=== PATIENT | male | born 1950 | race Caucasian/White ===

== ENCOUNTER 2016-07-09 11:50 | Emergency (ER) | payer OTHER ==
[2016-07-09 14:09] VITALS: BP 188/107
--- NOTE | 2016-07-09 15:01 | EDM.PDOC ---
ED HPI GENERAL MEDICAL PROBLEM - General Chief Complaint: General Stated Complaint: SWEELING IN FEET AND LEGS Time Seen by Provider: 07/09/16 15:00 Source of Information: Reports: Patient, Family History Limitations: Reports: No limitations - History of Present Illness INITIAL COMMENTS - FREE TEXT/NARRATIVE: PT ARRIVED CONCERNED ABOUT THE LEG SWELLING. hE IS FEELING THAT HIS LEGS ARE VERY UNCOMFORTABLE. Onset: gradual Duration: Day(s): Location: Reports: lower extremity, left, lower extremity, right Associated Symptoms: Reports: denies other symptoms - Related Data Allergies Allergy/AdvReac Type Severity Reaction Status Date / Time codeine Allergy Severe Respiratory Verified 07/09/16 13:32 Depression Penicillins Allergy Severe Hives Verified 07/09/16 13:31 gabapentin [From Neurontin] Allergy Unknown Anxiety Verified 07/09/16 13:32 Home Meds: Home Meds Labetalol [Normodyne] 300 mg PO BID 07/09/16 [History] Losartan [Cozaar] 100 mg PO DAILY 07/09/16 [History] [place]-3 Fatty Acids [Fish Oil] 300 mg PO BEDTIME 07/09/16 [History] Sesame Seed Extract [Sesame Seed] 10 mg PO BID 07/09/16 [History] Spironolactone [Aldactone] 25 mg PO DAILY 07/09/16 [History] amLODIPine [Norvasc] 10 mg PO DAILY 07/09/16 [History] Past Medical History HEENT History: Reports: Impaired vision Cardiovascular History: Reports: Heart murmur, High cholesterol, Hypertension Respiratory History: Reports: Asthma, COPD, Sleep apnea Genitourinary History: Reports: Other (see below) Other Genitourinary History: borderline diabetic Musculoskeletal History: Reports: Back pain, chronic, Osteoarthritis Neurological History: Reports: Head trauma Dermatologic History: Reports: Other (see below) Other Dermatologic History: 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 scratches with open areas from time to time - Infectious Disease History Infectious Disease History: Reports: Hepatitis C - Past Surgical History HEENT Surgical History: Reports: Other (see below) Other HEENT Surgeries/Procedures: reconstructed nose surgery from deviated septum, 1999 approx. GI Surgical History: Reports: Hernia, abdominal Social & Family History - Tobacco Use Smoking Status *Q: Current Every Day Smoker Years of Tobacco use: 45 Packs/Tins Daily: 1 Second Hand Smoke Exposure: Yes - Caffeine Use Caffeine Use: Reports: Coffee Other Caffeine Use: 2 to 4 cups per day - Recreational Drug Use Recreational Drug Use: No ED ROS GENERAL - Review of Systems Review Of Systems: See Below Constitutional: Reports: no symptoms HEENT: Reports: No symptoms Respiratory: Reports: No Symptoms Cardiovascular: Reports: No symptoms Endocrine: Reports: no symptoms GI/Abdominal: Reports: No symptoms : Reports: no symptoms Musculoskeletal: Reports: other ( SWELLING IN HIS LOWER EXTREMITIES. ) Skin: Reports: no symptoms ED EXAM, GENERAL - Physical Exam Exam: See Below Free Text/Narrative:: pT APPEARS TO BE VERY AGITATED. hE HAS SWELLING IN HIS LEGS AND THEY ARE TENDER. Exam Limited By: No limitations General Appearance: alert, anxious Ears: normal TMs Nose: normal inspection Throat/Mouth: Normal inspection Head: atraumatic Neck: normal inspection Respiratory/Chest: no respiratory distress Cardiovascular: regular rate, rhythm GI/Abdominal: other ( ABDOMAN IS MILDLY DISTENDED. ) (Male) Exam: Deferred Rectal (Males) Exam: Deferred Back Exam: normal inspection Neurological: alert, oriented Psychiatric: normal affect Course - Vital Signs Last Recorded V/S: Last Vital Signs Temp 36.4 C 07/09/16 13:45 Pulse 71 07/09/16 13:45 Resp 20 07/09/16 13:45 BP 188/107 H 07/09/16 13:45 Pulse Ox 94 L 07/09/16 13:45 - Orders/Labs/Meds Orders: Active Orders 24 hr Category Date Time Status Abdomen Pelvis w Cont [CT] Stat Exams 07/09/16 15:54 Taken VL Duplex Lwr Ext Veins Comp [US] Stat Exams 07/09/16 14:59 Taken Iopamidol [Isovue-300 (61%)] Med 07/09/16 16:15 Active 150 ml IV . DIRECTED Sodium Chloride 0.9% [Normal Saline] 1,000 ml Med 07/09/16 16:00 Active IV ASDIRECTED Sodium Chloride 0.9% [Saline Flush] Med 07/09/16 16:02 Active 10 ml FLUSH ONETIME PRN Medication Orders Sodium Chloride (Normal Saline) 1,000 mls @ 100 mls/hr IV ASDIRECTED BO Last Admin: 07/09/16 16:30 Dose: 100 mls/hr Iopamidol (Isovue-300 (61%)) 150 ml IV . DIRECTED BO Last Admin: 07/09/16 16:17 Dose: 150 ml Sodium Chloride (Saline Flush) 10 ml FLUSH ONETIME PRN PRN Reason: PER RADIOLOGY PROTOCOL Last Admin: 07/09/16 16:17 Dose: 10 ml Labs: Laboratory Tests 07/09/16 07/09/16 07/09/16 Range/Units 15:07 15:07 15:07 WBC 10.9 (4.5-11.0) K/uL RBC 5.21 (4.30-5.90) M/uL Hgb 15.6 H (12.0-15.0) g/dL Hct 45.7 (40.0-54.0) % MCV 88 (80-98) fL MCH 30 (27-31) pg MCHC 34 (32-36) % Plt Count 187 (150-400) K/uL Neut % (Auto) 62 (36-66) % Lymph % (Auto) 24 (24-44) % [place] % (Auto) 9 H (2-6) % Eos % (Auto) 5 H (2-4) % Baso % (Auto) 1 (0-1) % Sodium 143 (140-148) mmol/L Potassium 3.8 (3.6-5.2) mmol/L Chloride 105 (100-108) mmol/L Carbon Dioxide 27 (21-32) mmol/L Anion Gap 10.8 (5.0-14.0) mmol/L BUN 12 (7-18) mg/dL Creatinine 1.1 (0.8-1.3) mg/dL Est Cr Clr Drug Dosing 56.69 mL/min Estimated GFR (MDRD) > 60 (>60) Glucose 115 H (74-106) mg/dL Calcium 8.8 (8.5-10.1) mg/dL Total Bilirubin 0.4 (0.2-1.0) mg/dL AST 17 (15-37) U/L ALT 29 (12-78) U/L Alkaline Phosphatase 26 L (46-116) U/L [id number] Pept (5-125) pg/mL Total Protein 7.2 (6.4-8.2) g/dL Albumin 4.1 (3.4-5.0) g/dL Globulin 3.1 (2.3-3.5) g/dL Albumin/Globulin Ratio 1.3 (1.2-2.2) Lipase 221 (73-393) U/L Urine Color Urine Appearance Urine pH (4.5-8.0) Ur Specific [place] (1.008-1.030) Urine Protein (NEGATIVE) mg/dL Urine Glucose (UA) (NEGATIVE) mg/dL Urine Ketones (NEGATIVE) mg/dL Urine Occult Blood (NEGATIVE) Urine Nitrite (NEGAITVE) Urine Bilirubin (NEGATIVE) Urine Urobilinogen (NORMAL) mg/dL Ur Leukocyte Esterase (NEGATIVE) Urine RBC (0-5) Urine WBC (0-5) Ur Epithelial Cells Amorphous Sediment Urine Bacteria Urine Mucus 07/09/16 07/09/16 Range/Units 15:28 15:43 WBC (4.5-11.0) K/uL RBC (4.30-5.90) M/uL Hgb (12.0-15.0) g/dL Hct (40.0-54.0) % MCV (80-98) fL MCH (27-31) pg MCHC (32-36) % Plt Count (150-400) K/uL Neut % (Auto) (36-66) % Lymph % (Auto) (24-44) % [place] % (Auto) (2-6) % Eos % (Auto) (2-4) % Baso % (Auto) (0-1) % Sodium (140-148) mmol/L Potassium (3.6-5.2) mmol/L Chloride (100-108) mmol/L Carbon Dioxide (21-32) mmol/L Anion Gap (5.0-14.0) mmol/L BUN (7-18) mg/dL Creatinine (0.8-1.3) mg/dL Est Cr Clr Drug Dosing mL/min Estimated GFR (MDRD) (>60) Glucose (74-106) mg/dL Calcium (8.5-10.1) mg/dL Total Bilirubin (0.2-1.0) mg/dL AST (15-37) U/L ALT (12-78) U/L Alkaline Phosphatase (46-116) U/L [id number] Pept 78 (5-125) pg/mL Total Protein (6.4-8.2) g/dL Albumin (3.4-5.0) g/dL Globulin (2.3-3.5) g/dL Albumin/Globulin Ratio (1.2-2.2) Lipase (73-393) U/L Urine Color Yellow Urine Appearance Clear Urine pH 7.0 (4.5-8.0) Ur Specific [place] 1.005 L (1.008-1.030) Urine Protein Negative (NEGATIVE) mg/dL Urine Glucose (UA) Normal (NEGATIVE) mg/dL Urine Ketones Negative (NEGATIVE) mg/dL Urine Occult Blood Negative (NEGATIVE) Urine Nitrite Negative (NEGAITVE) Urine Bilirubin Negative (NEGATIVE) Urine Urobilinogen Normal (NORMAL) mg/dL Ur Leukocyte Esterase Negative (NEGATIVE) Urine RBC 0-5 (0-5) Urine WBC 0-5 (0-5) Ur Epithelial Cells Rare Amorphous Sediment Not seen Urine Bacteria Not seen Urine Mucus Not seen Meds: Medications Generic Name Dose Route Start Last Admin Trade Name Freq PRN Reason Stop Dose Admin Sodium Chloride 1,000 mls @ 100 mls/hr 07/09/16 16:00 07/09/16 16:30 Normal Saline IV 100 mls/hr ASDIRECTED BO Administration Iopamidol 150 ml 07/09/16 16:15 07/09/16 16:17 Isovue-300 (61%) IV 150 ml . DIRECTED BO Administration Sodium Chloride 10 ml 07/09/16 16:02 07/09/16 16:17 Saline Flush FLUSH 10 ml ONETIME PRN Administration PER RADIOLOGY PROTOCOL Discontinued Medications Generic Name Dose Route Start Last Admin Trade Name Freq PRN Reason Stop Dose Admin Furosemide 60 mg 07/09/16 15:56 07/09/16 16:28 Lasix IVPUSH 07/09/16 15:57 60 mg ONETIME ONE Administration Hydromorphone HCl 0.5 mg 07/09/16 17:38 07/09/16 17:53 Dilaudid IVPUSH 07/09/16 17:39 0.5 mg ONETIME ONE Administration Sodium Chloride 84 mls @ 3 mls/sec 07/09/16 16:02 07/09/16 16:16 Normal Saline IV 07/09/16 16:03 3 mls/sec ONETIME ONE Administration Departure - Departure Time of Disposition: 18:01 Disposition: Home, Self-Care 01 Condition: fair Clinical Impression: Pedal edema, Back pain, Distended abdomen Referrals: Андрей Cruz MD [Primary Care Provider] - Forms: ED Department Discharge Care Plan Goals: LOW SALT DIET, ELEVATE LEGS WHEN SITTING, USE THE SUPPORT HOSE, lASIX 40 MG DAILY FOR 2 WEEKS, HIGH FIBER AND HIGH K DIET, USE PRUNES 3-4 DAILY GUMMY FIBERS 2-3 DAILY, [facility] FOLLOW UP, A COPY OF THE CAT DSCAN, AND LAB WORK TO GO WITH THE PT. NORCO5/325 1 TAB Q 6H PRN FOR PAIN # 6 - My Orders Last 24 Hours: My Active Orders 07/09/16 14:59 VL Duplex Lwr Ext Veins Comp [US] Stat 07/09/16 15:54 Abdomen Pelvis w Cont [CT] Stat 07/09/16 16:00 Sodium Chloride 0.9% [Normal Saline] 1,000 ml IV ASDIRECTED 07/09/16 16:02 Sodium Chloride 0.9% [Saline Flush] 10 ml FLUSH ONETIME PRN 07/09/16 16:15 Iopamidol [Isovue-300 (61%)] 150 ml IV . DIRECTED - Assessment/Plan Last 24 Hours: My Active Orders 07/09/16 14:59 VL Duplex Lwr Ext Veins Comp [US] Stat 07/09/16 15:54 Abdomen Pelvis w Cont [CT] Stat 07/09/16 16:00 Sodium Chloride 0.9% [Normal Saline] 1,000 ml IV ASDIRECTED 07/09/16 16:02 Sodium Chloride 0.9% [Saline Flush] 10 ml FLUSH ONETIME PRN 07/09/16 16:15 Iopamidol [Isovue-300 (61%)] 150 ml IV . DIRECTED
--- NOTE | 2016-07-09 15:24 | CR ---
Chest 1V Frontal INDICATION: SOB FINDINGS: Metallic densities projected over the left chest. Old left rib fractures. Pleural thickeni ng left costophrenic angle. Old right rib fracture. Chest otherwise negative.
[2016-07-09] MEDS ORDERED: Furosemide 40 MG/4 ML VIAL IVPUSH ONE (15:56)
[2016-07-09] MEDS ORDERED: Sodium Chloride 0.9% 1,000 ML IV SCH (16:00)
[2016-07-09] MEDS ORDERED: Sodium Chloride 0.9% 10 ML Syringe FLUSH PRN (16:02)
[2016-07-09] MEDS ORDERED: Iopamidol 612 MG/ML 150 ML Bottle IV SCH (16:15)
[2016-07-09] MEDS ORDERED: HYDROmorphone 0.5 MG/0.5 ML Syringe IVPUSH ONE (17:38)
--- NOTE | 2016-07-10 09:32 | US ---
VL Duplex Lwr Ext Veins Comp INDICATION: SWELLING IN BOTH LEGS. FINDINGS: Ultrasound examination of bilateral lower extremities using Doppler and compressive techni que demonstrates that the common femoral, femoral, and popliteal veins are patent, and negative for thrombus. The calf veins were segmentally visualized and are negative where seen. IMPRESSION: Bilateral lower extremities negative for deep venous thrombosis.
== END 2016-07-09 18:32 | disposition home or self-care (01) ==
LOC: JP.ED 11:50
DX: R60.0 Localized edema (principal); M54.9 Dorsalgia, unspecified; R14.0 Abdominal distension (gaseous); I10 Essential (primary) hypertension; E78.00 Pure hypercholesterolemia, unspecified; J45.909 Unspecified asthma, uncomplicated; J44.9 Chronic obstructive pulmonary disease, unspecified; F17.210 Nicotine dependence, cigarettes, uncomplicated; Z98.890 Other specified postprocedural states; Z79.899 Other long term (current) drug therapy; Z88.0 Allergy status to penicillin; Z88.5 Allergy status to narcotic agent; Z88.8 Allergy status to other drugs, medicaments and biological substances
CPT/HCPCS: 36415; 71010; 74177; 80053; 81001; 83690; 83880; 85025; 93970; 96361; 96374; 96375; 99284; J1170; J1940; J7030; J7040; J7050

== ENCOUNTER 2016-08-04 07:53 | Emergency (ER) | payer OTHER ==
[2016-08-04 08:07] VITALS: BP 179/90
[2016-08-04] MEDS ORDERED: HYDROmorphone 1 MG/ML Syringe IVPUSH ONE (08:44)
[2016-08-04] MEDS ORDERED: Sodium Chloride 0.9% 10 ML Syringe FLUSH PRN ×2 (08:44→09:17)
--- NOTE | 2016-08-04 08:52 | EDM.PDOC ---
ED UPPER BACK/NECK PAIN/INJURY - General Chief Complaint: Back Pain or Injury Stated Complaint: BACK PAIN/FELL Time Seen by Provider: 08/04/16 08:22 Source: Reports: Patient, Family, RN notes reviewed History Limitations: Reports: No limitations - History of Present Illness INITIAL COMMENTS - FREE TEXT/NARRATIVE: 66-year-old gentleman presents emergency department day complaint of mid back pain, he states this occurred earlier today when he fell off a stepladder estimates 2 feet off the ground while he was cutting a branch landed in a pile of brush he is experiencing mid thoracic pain on the right side he denies any loss of consciousness or hitting his head he denies any other injuries, patient refused getting a gown - Related Data Allergies/ADRs: Allergies Allergy/AdvReac Type Severity Reaction Status Date / Time codeine Allergy Severe Respiratory Verified 07/09/16 13:32 Depression Penicillins Allergy Severe Hives Verified 08/04/16 08:13 gabapentin [From Neurontin] Allergy Unknown Anxiety Verified 07/09/16 13:32 Home Meds: Home Meds Labetalol [Normodyne] 300 mg PO BID 07/09/16 [History] Losartan [Cozaar] 100 mg PO DAILY 07/09/16 [History] [place]-3 Fatty Acids [Fish Oil] 300 mg PO BEDTIME 07/09/16 [History] Sesame Seed Extract [Sesame Seed] 10 mg PO BID 07/09/16 [History] Spironolactone [Aldactone] 25 mg PO DAILY 07/09/16 [History] amLODIPine [Norvasc] 10 mg PO DAILY 07/09/16 [History] Aspirin [Halfprin] 81 mg PO DAILY 08/04/16 [History] Furosemide [Lasix] 20 mg PO DAILY 08/04/16 [History] rOPINIRole [Requip] 0.5 mg PO TID 08/04/16 [History] Past Medical History HEENT History: Reports: Impaired vision Cardiovascular History: Reports: Heart murmur, High cholesterol, Hypertension Respiratory History: Reports: Asthma, COPD, Sleep apnea Genitourinary History: Reports: Other (see below) Other Genitourinary History: borderline diabetic Musculoskeletal History: Reports: Back pain, chronic, Osteoarthritis Neurological History: Reports: Head trauma Endocrine/Metabolic History: Reports: Other (see below) Other Endocrine/Metabolic History: boarder line diabetes Dermatologic History: Reports: Other (see below) Other Dermatologic History: 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 scratches with open areas from time to time - Infectious Disease History Infectious Disease History: Reports: Hepatitis C - Past Surgical History HEENT Surgical History: Reports: Other (see below) Other HEENT Surgeries/Procedures: reconstructed nose surgery from deviated septum, 1999 approx. GI Surgical History: Reports: Hernia, abdominal Social & Family History - Tobacco Use Smoking Status *Q: Current Every Day Smoker Years of Tobacco use: 45 Packs/Tins Daily: 1 Second Hand Smoke Exposure: Yes - Caffeine Use Caffeine Use: Reports: Coffee Other Caffeine Use: 2 to 4 cups per day - Recreational Drug Use Recreational Drug Use: No ED ROS GENERAL - Review of Systems Review Of Systems: See Below Constitutional: Reports: no symptoms HEENT: Reports: No symptoms Respiratory: Reports: Shortness of Breath (With a deep breath) Cardiovascular: Reports: Chest pain (Predominantly back right side) GI/Abdominal: Reports: No symptoms : Reports: no symptoms Musculoskeletal: Reports: no symptoms Skin: Reports: no symptoms Neurological: Reports: Other (Cannot lift his arms above his head secondary to pain) ED EXAM, UPPER BACK/NECK PAIN - Physical Exam Exam: See Below Exam Limited By: No limitations General Appearance: alert, mild distress Head Exam: atraumatic, normocephalic Neck Exam: non-tender, full range of motion, normal alignment, normal inspection Nexus Criteria: painful distracting injuries. No: posterior, midline cervical tenderness, evidence of intoxication, altered level of consciousness, focal neurological deficit Cardiovascular/Respiratory: regular rate, rhythm, no M/R/G GI/Abdominal: soft, non tender Back Exam: normal inspection, decreased range of motion, paraspinal tenderness ( T6 to 8 region right side). No: full range of motion, CVA tenderness (R), CVA tenderness (L), muscle spasm, vertebral tenderness Neurologic: No: abnormal gait Course - Vital Signs Last Recorded V/S: Last Vital Signs Temp 98.0 F 08/04/16 08:20 Pulse 73 08/04/16 08:20 Resp 16 08/04/16 08:20 BP 179/90 H 08/04/16 08:20 Pulse Ox 95 08/04/16 08:20 - Orders/Labs/Meds Orders: Active Orders 24 hr Category Date Time Status Peripheral IV Care [RC] . DIRECTED Care 08/04/16 08:44 Active Chest w Cont [CT] Stat Exams 08/04/16 09:13 Taken Sodium Chloride 0.9% [Normal Saline] 1,000 ml Med 08/04/16 09:15 Active IV ASDIRECTED Sodium Chloride 0.9% [Saline Flush] Med 08/04/16 08:44 Active 10 ml FLUSH ASDIRECTED PRN Peripheral IV Insertion Adult [OM.PC] Urgent Oth 08/04/16 08:44 Ordered Medication Orders Sodium Chloride (Normal Saline) 1,000 mls @ 500 mls/hr IV ASDIRECTED BO Sodium Chloride (Saline Flush) 10 ml FLUSH ASDIRECTED PRN PRN Reason: Keep Vein Open Last Admin: 08/04/16 08:56 Dose: 10 ml Labs: Laboratory Tests 08/04/16 08/04/16 Range/Units 09:28 09:28 WBC 13.8 H (4.5-11.0) K/uL RBC 5.11 (4.30-5.90) M/uL Hgb 15.5 H (12.0-15.0) g/dL Hct 45.1 (40.0-54.0) % MCV 88 (80-98) fL MCH 30 (27-31) pg MCHC 34 (32-36) % Plt Count 199 (150-400) K/uL Neut % (Auto) 68 H (36-66) % Lymph % (Auto) 19 L (24-44) % [place] % (Auto) 10 H (2-6) % Eos % (Auto) 3 (2-4) % Baso % (Auto) 1 (0-1) % Sodium 143 (140-148) mmol/L Potassium 4.5 (3.6-5.2) mmol/L Chloride 106 (100-108) mmol/L Carbon Dioxide 27 (21-32) mmol/L Anion Gap 10.4 (5.0-14.0) mmol/L BUN 18 (7-18) mg/dL Creatinine 1.1 (0.8-1.3) mg/dL Est Cr Clr Drug Dosing 56.69 mL/min Estimated GFR (MDRD) > 60 (>60) Glucose 136 H (74-106) mg/dL Calcium 8.9 (8.5-10.1) mg/dL Meds: Medications Generic Name Dose Route Start Last Admin Trade Name Meaghan PRN Reason Stop Dose Admin Sodium Chloride 1,000 mls @ 500 mls/hr 08/04/16 09:15 Normal Saline IV ASDIRECTED BO Sodium Chloride 10 ml 08/04/16 08:44 08/04/16 08:56 Saline Flush FLUSH 10 ml ASDIRECTED PRN Administration Keep Vein Open Discontinued Medications Generic Name Dose Route Start Last Admin Trade Name Meaghan PRN Reason Stop Dose Admin Hydromorphone HCl 1 mg 08/04/16 08:44 08/04/16 08:56 Dilaudid IVPUSH 08/04/16 08:45 1 mg ONETIME ONE Administration Sodium Chloride 70 mls @ 3 mls/sec 08/04/16 09:17 08/04/16 10:08 Normal Saline IV 08/04/16 09:18 3 mls/sec ASDIRECTED ONE Administration Iopamidol 100 ml 08/04/16 09:17 08/04/16 10:07 Isovue-300 (61%) IV 08/04/16 09:18 100 ml . DIRECTED PRN Administration RADIOLOGY EXAM Sodium Chloride 10 ml 08/04/16 09:17 08/04/16 10:08 Saline Flush FLUSH 08/04/16 09:18 10 ml . DIRECTED PRN Administration [id number] EXAM Departure - Departure Time of Disposition: 10:58 Disposition: Home, Self-Care 01 Condition: good Clinical Impression: Back pain Qualifiers: Back pain location: thoracic back pain Chronicity: acute Back pain laterality: right Qualified Code(s): M54.6 - Pain in thoracic spine Forms: ED Department Discharge Additional Instructions: Use hydrocodone as needed for pain, use ibuprofen for baseline pain control, use soma as needed for muscle relaxant, Please followup with your primary care provider in 3-5 days if not better, please call return to the emergency department with worsening of symptoms. - My Orders Last 24 Hours: My Active Orders 08/04/16 08:44 Peripheral IV Care [RC] . DIRECTED Sodium Chloride 0.9% [Saline Flush] 10 ml FLUSH ASDIRECTED PRN Peripheral IV Insertion Adult [OM.PC] Urgent 08/04/16 09:13 Chest w Cont [CT] Stat 08/04/16 09:15 Sodium Chloride 0.9% [Normal Saline] 1,000 ml IV ASDIRECTED - Assessment/Plan Last 24 Hours: My Active Orders 08/04/16 08:44 Peripheral IV Care [RC] . DIRECTED Sodium Chloride 0.9% [Saline Flush] 10 ml FLUSH ASDIRECTED PRN Peripheral IV Insertion Adult [OM.PC] Urgent 08/04/16 09:13 Chest w Cont [CT] Stat 08/04/16 09:15 Sodium Chloride 0.9% [Normal Saline] 1,000 ml IV ASDIRECTED Plan: Assessment Acuity = acute Site and laterality = mid back pain Etiology = secondary to trauma Manifestations = none Location of injury = home Lab values = WBC elevated at 13.8 consistent leukocytosis, BMP within normal limits CT scan demonstrates no acute process of the chest Plan he had good relief with the IV Dilaudid provided plan is to discharge home with hydrocodone #10 and soma to be used as needed for pain control Patient was in agreement with the plan all questions were answered, they were instructed to return to the emergency department or call for worsening symptoms. This note was dictated using [employer] voice recognition software please call with any questions.
[2016-08-04] MEDS ORDERED: Sodium Chloride 0.9% 1,000 ML IV SCH (09:15)
[2016-08-04] MEDS ORDERED: Iopamidol 612 MG/ML 100 ML Bottle IV PRN (09:17)
== END 2016-08-04 11:08 | disposition home or self-care (01) ==
LOC: JP.ED 07:53
DX: M54.6 Pain in thoracic spine (principal); I10 Essential (primary) hypertension; E78.00 Pure hypercholesterolemia, unspecified; J45.909 Unspecified asthma, uncomplicated; J44.9 Chronic obstructive pulmonary disease, unspecified; F17.210 Nicotine dependence, cigarettes, uncomplicated; Z79.82 Long term (current) use of aspirin; Z79.899 Other long term (current) drug therapy; Z98.890 Other specified postprocedural states; Z88.0 Allergy status to penicillin; Z88.5 Allergy status to narcotic agent; Z88.8 Allergy status to other drugs, medicaments and biological substances; W11.XXXA Fall on and from ladder, initial encounter
CPT/HCPCS: 36415; 71260; 80048; 85025; 96361; 96374; 99284; J1170; J7030; J7050; Q9967; J7040

== ENCOUNTER 2017-01-11 19:45 | Emergency (ER) | payer OTHER ==
[2017-01-11] MEDS ORDERED: Ketorolac 30 MG/ML SDV IM ONE (20:57)
[2017-01-11] MEDS ORDERED: hydrOXYzine HCl 100 MG/2 ML SDV IM ONE (20:58)
--- NOTE | 2017-01-11 21:01 | EDM.PDOC ---
ED HPI GENERAL MEDICAL PROBLEM - General Chief Complaint: Back Pain or Injury Stated Complaint: back hurts not an accident Time Seen by Provider: 01/11/17 20:42 Source of Information: Reports: Patient History Limitations: Reports: No Limitations - History of Present Illness INITIAL COMMENTS - FREE TEXT/NARRATIVE: Cortez presents today with complaints of increase of lower back pain with muscle spasms. He denies loss of bowel/bladder function or change in sensation. Quality: Reports: Ache, Stabbing, Throbbing Severity: Moderate Improves with: Reports: None Worsens with: Reports: Movement back/neck pain Pain Score (Numeric/FACES): 9 - Related Data Allergies Allergy/AdvReac Type Severity Reaction Status Date / Time codeine Allergy Severe Respiratory Verified 07/09/16 13:32 Depression Penicillins Allergy Severe Hives Verified 08/04/16 08:13 gabapentin [From Neurontin] Allergy Unknown Anxiety Verified 07/09/16 13:32 amitriptyline Allergy Hyperactivi Verified 01/11/17 20:27 ty Home Meds: Home Meds Labetalol [Normodyne] 300 mg PO BID 07/09/16 [History] Losartan [Cozaar] 100 mg PO DAILY 07/09/16 [History] [place]-3 Fatty Acids [Fish Oil] 300 mg PO BEDTIME 07/09/16 [History] Sesame Seed Extract [Sesame Seed] 10 mg PO BID 07/09/16 [History] Spironolactone [Aldactone] 25 mg PO DAILY 07/09/16 [History] amLODIPine [Norvasc] 10 mg PO DAILY 07/09/16 [History] Aspirin [Halfprin] 81 mg PO DAILY 08/04/16 [History] Furosemide [Lasix] 20 mg PO DAILY 08/04/16 [History] rOPINIRole [Requip] 0.5 mg PO TID 08/04/16 [History] Baclofen 10 mg PO TID 01/11/17 [History] Past Medical History HEENT History: Reports: Impaired Vision Cardiovascular History: Reports: Heart Murmur, High Cholesterol, Hypertension Respiratory History: Reports: Asthma, COPD, Sleep Apnea Genitourinary History: Reports: Other (See Below) Other Genitourinary History: borderline diabetic Musculoskeletal History: Reports: Back Pain, Chronic, Osteoarthritis Neurological History: Reports: Head Trauma Endocrine/Metabolic History: Reports: Other (See Below) Other Endocrine/Metabolic History: boarder line diabetes Dermatologic History: Reports: Other (See Below) Other Dermatologic History: 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 scratches with open areas from time to time - Infectious Disease History Infectious Disease History: Reports: Hepatitis C - Past Surgical History HEENT Surgical History: Reports: Other (See Below) GI Surgical History: Reports: Hernia, Abdominal Social & Family History - Family History Family Medical History: Noncontributory - Tobacco Use Smoking Status *Q: Current Every Day Smoker Years of Tobacco use: 55 Packs/Tins Daily: 1 Used Tobacco, but Quit: No Second Hand Smoke Exposure: Yes - Caffeine Use Caffeine Use: Reports: Coffee Other Caffeine Use: 2 to 4 cups per day - Recreational Drug Use Recreational Drug Use: Yes Drug Use in Last 12 Months: Yes Recreational Drug Type: Reports: Marijuana/Hashish Other Recreational Drug Type: End of July or first part of August was the last time he smoked marijuana and only did so for pain relief. Recreational Drug Use Frequency: Not Used In Over 5 Months ED ROS GENERAL - Review of Systems Review Of Systems: See Below Constitutional: Denies: Fever, Chills, Weakness, Night Sweats, Diaphoresis HEENT: Reports: No Symptoms Respiratory: Denies: Shortness of Breath, Wheezing, Cough, Sputum Cardiovascular: Reports: No Symptoms Endocrine: Reports: No Symptoms GI/Abdominal: Denies: Abdominal Pain, Black Stool, Bloody Stool, Constipation, Diarrhea, Nausea, Vomiting : Reports: No Symptoms Musculoskeletal: Reports: Back Pain Skin: Reports: No Symptoms Neurological: Denies: Numbness, Paresthesia, Tingling, Difficulty Walking, Weakness, Change in Speech, Gait Disturbance Psychiatric: Reports: No Symptoms Hematologic/Lymphatic: Reports: No Symptoms Immunologic: Reports: No Symptoms ED EXAM,LOWER BACK PAIN/INJURY - Physical Exam Exam: See Below Text/Narrative:: Cortez presents tonight with complaints of low back pain flare. He reports he is managed by the [facility] system in [place]. He states the pain started to worsen today and he has not been able to get relief with baclofen and resting at home. Exam Limited By: No Limitations General Appearance: Alert, WD/WN, No Apparent Distress Eye Exam: Bilateral Eye: EOMI, Normal Inspection, PERRL Head: Atraumatic, Normocephalic Neck: Normal Inspection, Supple, Non-Tender. No: Lymphadenopathy (R), Lymphadenopathy (L) Respiratory/Chest: No Respiratory Distress, Lungs Clear, Normal Breath Sounds, No Accessory Muscle Use, Chest Non-Tender Cardiovascular: Normal Peripheral Pulses, Regular Rate, Rhythm, No Edema, No Murmur, No Rub GI/Abdominal: Normal Bowel Sounds, Soft, Non-Tender, No Distention, No Mass Back Exam: Normal Inspection, Decreased Range of Motion, Muscle Spasm. No: CVA Tenderness (R), CVA Tenderness (L), Paraspinal Tenderness, Vertebral Tenderness Extremities: Normal Inspection, Normal Range of Motion, Non-Tender, No Pedal Edema, Normal Capillary Refill Neurological: Alert, Normal Mood/Affect, Normal Dorsiflexion, CN II-XII Intact, Normal Plantar Flexion, Normal Gait, No Motor/Sensory Deficits, Oriented x 3, Other (negative bilateral leg raise, difficulty with change of position, extension and flexion due to muscle spasm. ) DTR - Lower Extremities: 2+: Knee (R), Knee (L) Psychiatric: Normal Affect, Normal Mood Skin Exam: Warm, Dry, Intact, Normal Color, No Rash Lymphatic: No Adenopathy Course - Orders/Labs/Meds Meds: Medications Discontinued Medications Generic Name Dose Route Start Last Admin Trade Name Freq PRN Reason Stop Dose Admin Hydroxyzine HCl 100 mg 01/11/17 20:58 01/11/17 21:21 Vistaril IM 01/11/17 20:59 100 mg ONETIME ONE Administration Ketorolac Tromethamine 30 mg 01/11/17 20:57 01/11/17 21:17 Toradol IM 01/11/17 20:58 30 mg ONETIME ONE Administration Departure - Departure Time of Disposition: 21:35 Disposition: Home, Self-Care 01 Condition: Fair Clinical Impression: Low back pain - Discharge Information Instructions: Back Pain, Adult Referrals: PCP,None [Primary Care Provider] - Forms: ED Department Discharge Additional Instructions: You are suffering from chronic low back pain. You were given toradol 30mg IM and vistaril 100mg IM in the emergency room tonight. Take hydrocodone 5/325mg tablets as directed. Continue your other home medications as directed, especially your baclofen. Return for worsening, issues or concerns. Follow up with your primary provider on Saturday for further pain management. - Assessment/Plan Assessment:: Chronic low back pain No change in function or sensation of bowel and bladder. Plan: Patient suffering from low back pain. He was given toradol 30mg IM and vistaril 100mg IM in the emergency room tonight. He can take hydrocodone 5/325mg tablets as directed. Continue his other home medications as directed, especially the baclofen. Return for worsening, issues or concerns. Follow up with his primary provider on Saturday for further pain management.
== END 2017-01-11 21:44 | disposition home or self-care (01) ==
LOC: JP.ED 19:45
DX: M54.5 Low back pain (principal); I10 Essential (primary) hypertension; J45.909 Unspecified asthma, uncomplicated; E78.00 Pure hypercholesterolemia, unspecified; F17.210 Nicotine dependence, cigarettes, uncomplicated; Z88.5 Allergy status to narcotic agent; Z88.0 Allergy status to penicillin; Z88.8 Allergy status to other drugs, medicaments and biological substances; Z79.82 Long term (current) use of aspirin; Z79.899 Other long term (current) drug therapy
CPT/HCPCS: 96372; 99283; J1885; J3410

== ENCOUNTER 2017-09-17 17:45 | Emergency (ER) | payer OTHER ==
[2017-09-17 18:41] VITALS: BP 132/78
[2017-09-17] MEDS ORDERED: Ketorolac 30 MG/ML SDV IM ONE (19:26)
--- NOTE | 2017-09-17 19:27 | EDM.PDOC ---
ED HPI GENERAL MEDICAL PROBLEM - General Chief Complaint: General Stated Complaint: UNCONTROLABLE JERKS AND RESTLESS LEGS Time Seen by Provider: 09/17/17 19:10 Source of Information: Reports: Patient, RN Notes Reviewed History Limitations: Reports: No Limitations - History of Present Illness INITIAL COMMENTS - FREE TEXT/NARRATIVE: chief complaint Back pain and restless legs History of present illness 67-year-old male who has long-standing history of back pain, previously diagnosed with L5-S1 disc protrusion and also C3-C5 level disc disease for which she underwent fusion in February 2017. [facility] [place] At times his back pain and restless legs gets worse. He is on ropinirole for his restless legs For his back pain he was last seen in emergency in December 2016, at that time he received a Toradol injection as well as Vistaril That helped considerably, as well as some hydrocodone that he was prescribed at that time. He did phone his doctor who recommended he come to emergency rather than driving all the way of [place] to get a prescription. Patient is quite concerned that he may have had agent orange complications due to his [place] exposure. This may have affected his vision in his breathing as well as his skin. He has had a stroke previously and also damage to his vision although he is able to drive, his close vision is very poor. He has upcoming appointments with his spine surgeon in the next few weeks. Back Pain Score (Numeric/FACES): 8 - Related Data Allergies Allergy/AdvReac Type Severity Reaction Status Date / Time codeine Allergy Severe Respiratory Verified 07/09/16 13:32 Depression Penicillins Allergy Severe Hives Verified 08/04/16 08:13 gabapentin [From Neurontin] Allergy Unknown Anxiety Verified 07/09/16 13:32 amitriptyline Allergy Hyperactivi Verified 01/11/17 20:27 ty Home Meds: Home Meds Labetalol [Normodyne] 300 mg PO BID 07/09/16 [History] Losartan [Cozaar] 100 mg PO DAILY 07/09/16 [History] [place]-3 Fatty Acids [Fish Oil] 300 mg PO BEDTIME 07/09/16 [History] Sesame Seed Extract [Sesame Seed] 10 mg PO BID 07/09/16 [History] Spironolactone [Aldactone] 25 mg PO DAILY 07/09/16 [History] amLODIPine [Norvasc] 10 mg PO DAILY 07/09/16 [History] Aspirin [Halfprin] 81 mg PO DAILY 08/04/16 [History] Furosemide [Lasix] 20 mg PO DAILY 08/04/16 [History] rOPINIRole [Requip] 0.5 mg PO TID 08/04/16 [History] Baclofen 10 mg PO TID 01/11/17 [History] Hydrocodone/Acetaminophen [Hydrocodon-Acetaminophen 5-325] 1 - 2 each PO QID PRN #20 tablet 09/17/17 [Rx] hydrOXYzine Pamoate [Vistaril] 25 - 50 mg PO BEDTIME PRN #20 cap 09/17/17 [Rx] Past Medical History HEENT History: Reports: Impaired Vision Cardiovascular History: Reports: Heart Murmur, High Cholesterol, Hypertension Respiratory History: Reports: Asthma, COPD, Sleep Apnea Genitourinary History: Reports: Other (See Below) Other Genitourinary History: borderline diabetic Musculoskeletal History: Reports: Back Pain, Chronic, Osteoarthritis Neurological History: Reports: Head Trauma Endocrine/Metabolic History: Reports: Other (See Below) Other Endocrine/Metabolic History: boarder line diabetes Dermatologic History: Reports: Other (See Below) Other Dermatologic History: 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 scratches with open areas from time to time - Infectious Disease History Infectious Disease History: Reports: Hepatitis C - Past Surgical History HEENT Surgical History: Reports: Other (See Below) GI Surgical History: Reports: Hernia, Abdominal Social & Family History - Family History Family Medical History: Noncontributory - Tobacco Use Smoking Status *Q: Heavy Tobacco Smoker Years of Tobacco use: 50 Packs/Tins Daily: 1 - Caffeine Use Caffeine Use: Reports: Coffee Other Caffeine Use: 2 to 4 cups per day - Recreational Drug Use Recreational Drug Use: No ED ROS GENERAL - Review of Systems Review Of Systems: See Below Constitutional: Reports: No Symptoms HEENT: Reports: Vision Change. Denies: Eye Pain Respiratory: Reports: No Symptoms Cardiovascular: Reports: No Symptoms GI/Abdominal: Reports: No Symptoms Musculoskeletal: Reports: Back Pain (chronic) Neurological: Reports: Numbness, Tingling, Other (restless leg) Hematologic/Lymphatic: Reports: No Symptoms ED EXAM, GENERAL - Physical Exam Exam: See Below Exam Limited By: No Limitations General Appearance: Alert, Anxious (he is quite restless, and uncomfortable because of his back and legs, does cause him to moan sometimes and he was also upset that the wait to see her doctor, nearly an hour and a half) Eye Exam: Bilateral Eye: Other (very poor close vision needs extreme magnification with his left eye) Respiratory/Chest: No Respiratory Distress, No Accessory Muscle Use Cardiovascular: Normal Peripheral Pulses, Regular Rate, Rhythm Back Exam: Muscle Spasm, Other (scars from previous surgery) Extremities: Normal Inspection Neurological: Alert, Normal Gait, No Motor/Sensory Deficits Psychiatric: Anxious Skin Exam: Warm, Dry, Normal Color Lymphatic: No Adenopathy Course - Vital Signs Last Recorded V/S: Last Vital Signs Temp 36.2 C 09/17/17 18:41 Pulse 62 09/17/17 18:41 Resp 18 09/17/17 18:41 BP 132/78 09/17/17 18:41 Pulse Ox 99 09/17/17 18:41 - Orders/Labs/Meds Meds: Medications Discontinued Medications Generic Name Dose Route Start Last Admin Trade Name [place] PRN Reason Stop Dose Admin Ketorolac Tromethamine 30 mg 09/17/17 19:26 09/17/17 19:34 Toradol IM 09/17/17 19:27 30 mg ONETIME ONE Administration - Re-Assessments/Exams Free Text/Narrative Re-Assessment/Exam: 09/17/17 19:25 67-year-old male with recurrent back pain cervical and lumbar disc disease, previous surgery to the cervical spine Restless legs and back pain Seeking pain relief as recommended by his doctor in [place]. Toradol 30 mg IM Prescription as below 09/17/17 21:13 After discharge telephone back stating he needed a prescription of Vistaril for his restless legs. This patient may not be entirely clear on his medications Nevertheless Vistaril can be used and I was willing to renew this prescription for this Departure - Departure Time of Disposition: 19:40 Disposition: Admitted As Inpatient 65 Condition: Fair Clinical Impression: Acute exacerbation of chronic low back pain, Restless legs syndrome (RLS) - Discharge Information Prescriptions: Hydrocodone/Acetaminophen [Hydrocodon-Acetaminophen 5-325] 1 - 2 each PO QID PRN #20 tablet PRN Reason: Moderate to severe pain Instructions: Chronic Back Pain Referrals: Dio Siddiqui MD [Primary Care Provider] - Forms: ED Department Discharge Additional Instructions: Contact your physician for further care if you need renewals of your prescription Get rechecked promptly if you have loss of movement of your legs, develop a high fever, or loss of control of bladder or bowel
== END 2017-09-17 19:38 | disposition critical access hospital (66) ==
LOC: JP.ED 17:45
DX: M54.5 Low back pain (principal); G89.29 Other chronic pain; G25.81 Restless legs syndrome; F17.210 Nicotine dependence, cigarettes, uncomplicated; J44.9 Chronic obstructive pulmonary disease, unspecified; Z79.899 Other long term (current) drug therapy; Z88.0 Allergy status to penicillin; Z88.8 Allergy status to other drugs, medicaments and biological substances; Z88.6 Allergy status to analgesic agent
CPT/HCPCS: 96372; 99284; J1885

== ENCOUNTER 2017-12-03 14:23 | Emergency (ER) | payer OTHER ==
[2017-12-03 14:42] VITALS: BP 136/113
--- NOTE | 2017-12-03 15:46 | EDM.PDOC ---
ED HPI GENERAL MEDICAL PROBLEM - General Chief Complaint: Neurological Problem Stated Complaint: NUMBNESS IN RT HAND Time Seen by Provider: 12/03/17 15:00 Source of Information: Reports: Patient History Limitations: Reports: No Limitations - History of Present Illness INITIAL COMMENTS - FREE TEXT/NARRATIVE: 67-year-old male who has a history of a "stroke", takes one low-dose aspirin daily and medications for hypertension thinks he may have doubled up on on his medicines yesterday. Last evening for 30-45 minutes he had weakness and lack of coordination of his right hand. He had no other symptoms of the arm, leg, speech , left side, headache or any other issue. The symptoms resolved completely. [facility] he [facility] for [facility]ck and they told him to come to the emergency room. Onset: Sudden Duration: Minutes: (30-45 minutes) Severity: Mild Associated Symptoms: Reports: No Other Symptoms - Related Data Allergies Allergy/AdvReac Type Severity Reaction Status Date / Time codeine Allergy Severe Respiratory Verified 12/03/17 14:56 Depression Penicillins Allergy Severe Hives Verified 12/03/17 14:56 gabapentin [From Neurontin] Allergy Unknown Anxiety Verified 12/03/17 14:56 amitriptyline Allergy Hyperactivi Verified 12/03/17 14:56 ty Home Meds: Home Meds Labetalol [Normodyne] 300 mg PO BID 07/09/16 [History] Losartan [Cozaar] 100 mg PO DAILY 07/09/16 [History] [place]-3 Fatty Acids [Fish Oil] 300 mg PO BEDTIME 07/09/16 [History] Sesame Seed Extract [Sesame Seed] 10 mg PO BID 07/09/16 [History] Spironolactone [Aldactone] 25 mg PO DAILY 07/09/16 [History] amLODIPine [Norvasc] 10 mg PO DAILY 07/09/16 [History] Aspirin [Halfprin] 81 mg PO DAILY 08/04/16 [History] Furosemide [Lasix] 20 mg PO DAILY 08/04/16 [History] rOPINIRole [Requip] 0.5 mg PO TID 08/04/16 [History] Baclofen 10 mg PO TID 01/11/17 [History] Hydrocodone/Acetaminophen [Hydrocodon-Acetaminophen 5-325] 1 - 2 each PO QID PRN #20 tablet 09/17/17 [Rx] hydrOXYzine pamoate [Vistaril] 25 - 50 mg PO BEDTIME PRN #20 cap 09/17/17 [Rx] Past Medical History HEENT History: Reports: Impaired Vision Cardiovascular History: Reports: Heart Murmur, High Cholesterol, Hypertension Respiratory History: Reports: Asthma, COPD, Sleep Apnea Genitourinary History: Reports: Other (See Below) Other Genitourinary History: borderline diabetic Musculoskeletal History: Reports: Back Pain, Chronic, Osteoarthritis Neurological History: Reports: CVA, Head Trauma Endocrine/Metabolic History: Reports: Other (See Below) Other Endocrine/Metabolic History: boarder line diabetes Dermatologic History: Reports: Other (See Below) Other Dermatologic History: 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 scratches with open areas from time to time - Infectious Disease History Infectious Disease History: Reports: Hepatitis C - Past Surgical History GI Surgical History: Reports: Hernia, Abdominal Neurological Surgical History: Reports: Spinal Fusion Social & Family History - Family History Family Medical History: Noncontributory - Tobacco Use Smoking Status *Q: Light Tobacco Smoker Years of Tobacco use: 52 Packs/Tins Daily: 1 - Caffeine Use Caffeine Use: Reports: Coffee Other Caffeine Use: 2 to 4 cups per day - Recreational Drug Use Recreational Drug Use: No ED ROS GENERAL - Review of Systems Review Of Systems: See Below Constitutional: Denies: Fever, Chills, Malaise HEENT: Reports: Other (Blind in right eye, poor vision in the left eye. No acute changes) Respiratory: Denies: Shortness of Breath Cardiovascular: Reports: Other (Patient may have some lower extremity claudication with activity as he has pain in his calves with walking). Denies: Chest Pain, Palpitations GI/Abdominal: Denies: Nausea, Vomiting Skin: Reports: No Symptoms Neurological: Reports: Other (He has chronic restless leg syndrome) ED EXAM, NEURO - Physical Exam Exam: See Below Exam Limited By: No Limitations General Appearance: Alert, No Apparent Distress Eye Exam: Bilateral Eye: EOMI Head Exam: Atraumatic Neck: Other (There is a very subtle bruit in the right carotid artery) Respiratory/Chest: No Respiratory Distress, Lungs Clear Cardiovascular: Regular Rate, Rhythm, Systolic Murmur (He does have a very faint systolic murmur). No: Extra Beats GI/Abdominal: Soft, Non-Tender Neurological: Alert, No Motor/Sensory Deficits, Other (Grasp strength is equal bilaterally, lower extremity strength and facial muscles are equal) Course - Vital Signs Last Recorded V/S: Last Vital Signs Temp 97.1 F 12/03/17 14:54 Pulse 68 12/03/17 14:54 Resp 16 12/03/17 14:54 BP 136/113 H 12/03/17 14:54 Pulse Ox 96 12/03/17 14:54 - Re-Assessments/Exams Free Text/Narrative Re-Assessment/Exam: 12/03/17 15:44 Patient's symptoms are concerning for a brief very small TIA involving the right hand. Patient probably needs some vascular studies including carotid Doppler as well as echocardiogram. I encouraged him to increase his aspirin dose to a full aspirin instead of low-dose daily, and schedule an appointment as soon as [facility] with the [facility] to discuss [facility] testing. He should call the ambulance if symptoms recur. Departure - Departure Time of Disposition: 15:59 Disposition: Home, Self-Care 01 Condition: Good Clinical Impression: TIA (transient ischemic attack) - Discharge Information Instructions: Transient Ischemic Attack, [id number] Referrals: PCP,None [Primary Care Provider] - Forms: ED Department Discharge Care Plan Goals: Take at least 3 low-dose aspirins daily and continue your other medications. I would strongly recommend you make an appointment at the [facility] to discuss further testing such as carotid ultrasound and echocardiogram, or consider a neurology consultation. Return to the emergency room or call the ambulance if symptoms recur and are persistent or worsening.
== END 2017-12-03 15:58 | disposition home or self-care (01) ==
LOC: JP.ED 14:23
DX: G45.9 Transient cerebral ischemic attack, unspecified (principal); I10 Essential (primary) hypertension; F17.210 Nicotine dependence, cigarettes, uncomplicated; Z88.5 Allergy status to narcotic agent; Z88.8 Allergy status to other drugs, medicaments and biological substances; Z88.0 Allergy status to penicillin; Z79.899 Other long term (current) drug therapy
CPT/HCPCS: 99284